=== PATIENT | male | born 1970 | race African-American/Black ===

== ENCOUNTER → 2020-11-30 | Outpatient (CLI) | payer OTHER ==
[2020-12-01 02:06] LABS: RUBEOLA (MEASLES) IGG 20.6 AU/mL (Immune >16.4)
[2020-12-01 05:07] LABS: RUBELLA AB IGG-REFLAB <0.90 index (Immune >0.99)
== END | disposition home or self-care (01) ==
LOC: LABPV 11:36
PROVIDERS: ATTEND Internal Medicine
DX: Z02.1 Encounter for pre-employment examination (principal)
CPT/HCPCS: 86706; 86735; 86762; 86765; 86787